=== PATIENT | female | born 1960 | race Hispanic/Latino ===

== ENCOUNTER 2017-10-24 14:52 | Outpatient (AMBR) | payer OTHER, SELFPAY ==
--- NOTE | 2017-10-24 15:12 | PT.OIERPT ---
PT OP Initial Eval Patient Information Visit Reasons: foot pain Medical Diagnosis: M72.2 Treatment Dx #1: L foot pain Start of Care: 10/24/17 Date of Onset: June 14, 2017 Initial Assessment Subjective Pt is 57 yr old female s/p sx to repair L plantar fasciosis. Prior to sx, she had difficulty walking due to pain. She wore a walking boot for close to 2 months and reports ankle tightness. Now the pain is 5-7/10 depending on the activity. 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 She can walk limited distances around 20 minutes continuous but has soreness after and takes breaks. She has to stretch the bottom of the foot in order to start walking in the morning. PMH: LE vascular issues Imaging: prior to sx with provider Pt goal: less pain to walk better Objective L ankle AROM: DF: to neutral with knee extended, 8 deg knee flexed PF: 48 deg Eversion: 15 deg Inversion: 15 deg Strength: 4/5 in all planes of motion TTP: min over lateral border scar Forefoot and calcaneal PROM: full and painfree Assessment Pt presentation consistent with post op plantar fasciitis sx with decreased ankle ROM, strength and ambulatory distance. Pt has difficulty with prolonged walking and heel raising limited by pain. Decreased DF ROM due to gastroc/Achilles tightness. PT recommends softer insoles to reduce lateral 5th metatarsal pain as she walks on lateral border. Short Term and Snf Goals 1. Ind with HEP 2. Improved DF with knee extended to 8 deg 3. Decreased TTP of lateral foot from min to none 4. Pt will heel raise x10 with <=3/10 pain 5. Improved ambultory tolerance to 30 mins Treatment Plan Frequency and Duration 2x a week for 8 weeks Certification Dates: 10/24/17 to 01/24/18 Office Procedures PT Procedures PT Date of Service: 10/24/17 OP PT Eval Mod Complex 30 minutes: Yes
--- NOTE | 2017-10-24 15:18 | PTNOTE_ITS ---
PT OP Initial Eval Patient Information Visit Reasons: foot pain Medical Diagnosis: M72.2 Treatment Dx #1: L foot pain Start of Care: 10/24/17 Date of Onset: June 14, 2017 Initial Assessment Subjective Pt is 57 yr old female s/p sx to repair L plantar fasciosis. Prior to sx, she had difficulty walking due to pain. She wore a walking boot for close to 2 months and reports ankle tightness. Now the pain is 5-7/10 depending on the activity. 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 She can walk limited distances around 20 minutes continuous but has soreness after and takes breaks. She has to stretch the bottom of the foot in order to start walking in the morning. PMH: LE vascular issues Imaging: prior to sx with provider Pt goal: less pain to walk better Objective L ankle AROM: DF: to neutral with knee extended, 8 deg knee flexed PF: 48 deg Eversion: 15 deg Inversion: 15 deg Strength: 4/5 in all planes of motion TTP: min over lateral border scar Forefoot and calcaneal PROM: full and painfree Assessment Pt presentation consistent with post op plantar fasciitis sx with decreased ankle ROM, strength and ambulatory distance. Pt has difficulty with prolonged walking and heel raising limited by pain. Decreased DF ROM due to gastroc/ Achilles tightness. PT recommends softer insoles to reduce lateral 5th metatarsal pain as she walks on lateral border. Short Term and Detention Goals 1. Ind with HEP 2. Improved DF with knee extended to 8 deg 3. Decreased TTP of lateral foot from min to none 4. Pt will heel raise x10 with <=3/10 pain 5. Improved ambultory tolerance to 30 mins Treatment Plan Frequency and Duration 2x a week for 8 weeks Certification Dates: 10/24/17 to 01/24/18 Office Procedures PT Procedures PT Date of Service: 10/24/17 OP PT Eval Mod Complex 30 minutes: Yes
== END 2017-10-31 23:59 ==
PROVIDERS: PCP Family Medicine; Referring Provider Family Medicine; Visit Provider Podiatrist Foot & Ankle Surgery
DX: M79.672 Pain in left foot (principal); R26.2 Difficulty in walking, not elsewhere classified; M72.2 Plantar fascial fibromatosis
CPT/HCPCS: 97162